=== PATIENT | male | born 1985 | race Two or more races ===

== ENCOUNTER 2017-04-15 10:47 | Inpatient (IN) | payer BC ==
[~2017-04-15] VITALS: Ht 170.2 cm; Wt 67.1 kg
[2017-04-15] MEDS ORDERED: Ketorolac 60mg Inj IM ONE (11:00)
[2017-04-15 11:10] VITALS: BP 126/81
[2017-04-15] MEDS ORDERED: methylPREDNISolone Sod Succ 1,000 MG in NS 275 ML IVPB ONE (12:15)
[2017-04-15 12:58] LABS: LYMPHOCYTES % (AUTO) 19.7 % (20.0-45.0); MEAN CORPUSCULAR HEMOGLOBIN 30.2 PG (27.0-31.0); MEAN CORPUSCULAR HGB CONC 33.2 G/DL (32.0-36.0); MEAN CORPUSCULAR VOLUME 91 FL (80-99); MEAN PLATELET VOLUME 9.5 FL (6.5-10.1); MONOCYTES % (AUTO) 4.7 % (1.0-10.0); NEUTROPHILS % (AUTO) 72.6 % (45.0-75.0); PLATELET COUNT 285 K/UL (150-450); RED BLOOD COUNT 5.24 M/UL (4.70-6.10); RED CELL DISTRIBUTION WIDTH 13.3 % (11.6-14.8); WHITE BLOOD COUNT 9.1 K/UL (4.8-10.8)
[2017-04-15 13:06] LABS: INR 0.9 (0.9-1.1); PROTHROMBIN TIME 9.4 SEC (9.30-11.50)
[2017-04-15 13:15] LABS: ALANINE AMINOTRANSFERASE 23 U/L (3-41); ALBUMIN/GLOBULIN RATIO 1.7 (1.0-2.7); ANION GAP 13 (5-15); ASPARTATE AMINO TRANSFERASE 24 U/L (5-40); CALCIUM 9.6 mg/dL (8.6-10.2); CARBON DIOXIDE 26 mEQ/L (20-30); CHLORIDE 101 mEQ/L (98-107); CREATININE 0.8 mg/dL (0.7-1.2); GLOMERULAR FILTRATION RATE > 60 mL/min (>60); HEMOLYSIS 59; POTASSIUM 4.3 mEQ/L (3.4-4.9); SODIUM 140 mEQ/L (135-145); TOTAL PROTEIN 7.3 g/dL (6.6-8.7)
[2017-04-15 13:49] LABS: BILIRUBIN,DIRECT 0.2 mg/dL (0.1-0.3)
[2017-04-15] MEDS ORDERED: Morphine Sulfate 4mg/ml Inj IVP ONE (14:30)
[2017-04-15 14:42] VITALS: BP 129/84
[2017-04-15] MEDS ORDERED: GABAPENTIN600 MG ORAL (14:54)
[2017-04-15] MEDS ORDERED: KADIAN30 MG PO (14:54)
[2017-04-15] MEDS ORDERED: PERCOCET 10-321 EAC1 PO (14:54)
--- NOTE | 2017-04-15 15:21 | History and Physical ---
History of Present Illness General Date patient seen: Apr 15, 2017 Time patient seen: 15:21 Reason for Hospitalization: Pain Present Illness HPI 32yo male with pmh of MS (dx 8-9 years ago w/ loss of R eye vision followed by R face numbness and dysesthesia of R side of body) p/w uncontrolled pain and new L sided weakness He was first started on Avonex as his disease modifying agent and then because he was having side effects from Avonex he was started on Rebif. He has been on Rebif for numerous years. In spite of being on the Rebif, he has had multiple exacerbations of neurological problems. He is treated for these exacerbations with Solu-Medrol. He usually lives in [place], but is visiting [place] right now and he suddenly developed left-sided discomfort. The discomfort is in the form of dysesthetic pain and weakness on the left side. In ER, pt given solumdrol 1g. No imaging done. Allergies: Coded Allergies: No Known Allergies (Unverified , 04/15/17) Medication History Scheduled Gabapentin* (Gabapentin*), 600 MG ORAL FOUR TIMES A DAY, (Reported) Morphine Sulfate (Angelica), 30 MG PO PRN, (Reported) Oxycodone HCl/Acetaminophen (Percocet 10-325 mg Tablet), 1 EACH PO EVERY 12 HOURS, (Reported) Patient History Healthcare decision maker Resuscitation status Advanced Directive on File Past Medical/Surgical History Past Medical/Surgical History: (1) Multiple sclerosis Social History Social History: (1) Tobacco abuse Review of Systems Constitutional: Reports: no symptoms Eye: Reports: no symptoms ENT: Reports: no symptoms Respiratory: Reports: no symptoms Cardiovascular: Reports: no symptoms Gastrointestinal: Reports: no symptoms Genitourinary: Reports: no symptoms Musculoskeletal: Reports: no symptoms Skin: Reports: no symptoms Psychiatric: Reports: no symptoms Neurological: Reports: focal weakness, numbness, paresthesia Endocrine: Reports: no symptoms Hematologic/Lymphatic: Reports: no symptoms Physical Exam Physical Exam Narrative General: alert, cooperative, no distress, appears stated age Head: normocephalic, without obvious abnormality, atraumatic Eyes: conjunctivae/corneas clear. PERRL, EOM's intact Throat: lips, mucosa, and tongue normal. MMM Neck: supple, symmetrical, trachea midline, and no JVD Lungs: clear to auscultation bilaterally Heart: regular rate and rhythm, S1, S2 normal, no murmur, click, rub or gallop Abdomen: soft, non-tender, non-distended, bowel sounds normal; no masses or organomegaly Extremities: extremities normal, atraumatic, no cyanosis or edema Pulses: 2+ and symmetric Skin: skin color, texture, turgor normal; no rashes or lesions Neurologic: Altered sensation over right > left face and body. +L sided UE and LE motor weakness 3/5 Decreased DTRs in UE with normal DTRs in BLEs Inability to stand and walk due to left weakness. Last 24 Hour Vital Signs Date Time Temp Pulse Resp B/P Pulse Ox O2 Delivery O2 Flow Rate FiO2 04/15/17 14:42 97.5 86 16 129/84 98 Room Air 04/15/17 11:10 97.6 84 15 126/81 97 Room Air 04/15/17 10:51 97.7 89 18 122/79 97 Room Air Laboratory Tests Test 04/15/17 12:45 White Blood Count 9.1 K/UL (4.8-10.8) Red Blood Count 5.24 M/UL (4.70-6.10) Hemoglobin 15.8 G/DL (14.2-18.0) Hematocrit 47.5 % (42.0-52.0) Mean Corpuscular Volume 91 FL (80-99) Mean Corpuscular Hemoglobin 30.2 PG (27.0-31.0) Mean Corpuscular Hemoglobin Concent 33.2 G/DL (32.0-36.0) Red Cell Distribution Width 13.3 % (11.6-14.8) Platelet Count 285 K/UL (150-450) Mean Platelet Volume 9.5 FL (6.5-10.1) Neutrophils (%) (Auto) 72.6 % (45.0-75.0) Lymphocytes (%) (Auto) 19.7 % (20.0-45.0) L Monocytes (%) (Auto) 4.7 % (1.0-10.0) Eosinophils (%) (Auto) 2.0 % (0.0-3.0) Basophils (%) (Auto) 1.0 % (0.0-2.0) Erythrocyte Sedimentation Rate 9 MM/HR (0-15) Prothrombin Time 9.4 SEC (9.30-11.50) Prothromb Time International Ratio 0.9 (0.9-1.1) Activated Partial Thromboplast Time 28 SEC (23-33) Sodium Level 140 mEQ/L (135-145) Potassium Level 4.3 mEQ/L (3.4-4.9) Chloride Level 101 mEQ/L (98-107) Carbon Dioxide Level 26 mEQ/L (20-30) Anion Gap 13 (5-15) Blood Urea Nitrogen 14 mg/dL (7-23) Creatinine 0.8 mg/dL (0.7-1.2) Estimat Glomerular Filtration Rate > 60 mL/min (>60) Glucose Level 92 mg/dL (74-106) Calcium Level 9.6 mg/dL (8.6-10.2) Total Bilirubin 1.2 mg/dL (0.0-1.2) Direct Bilirubin 0.2 mg/dL (0.1-0.3) Aspartate Amino Transf (AST/SGOT) 24 U/L (5-40) Alanine Aminotransferase (ALT/SGPT) 23 U/L (3-41) Alkaline Phosphatase 80 U/L (40-129) C-Reactive Protein, Quantitative < 0.3 mg/dL (< 0.5) Total Protein 7.3 g/dL (6.6-8.7) Albumin 4.6 g/dL (3.5-5.2) Globulin 2.7 g/dL Albumin/Globulin Ratio 1.7 (1.0-2.7) Height (Feet): 5 Height (Inches): 7.00 Weight (Pounds): 148 Assessment/Plan Problem List: (1) New L sided weakness (2) Multiple sclerosis exacerbation ICD Codes: G35 - Multiple sclerosis SNOMED: [id number] (3) Acute on chronic pain Status: stable Assessment/Plan Admit inpt Neuro consult Check MRI brain w/ and w/o contrst Cont Solumedrol 1g daily per neuro Continue Rebif (pt has med) Continue Neurontin Mobilize with PT/OT. Pain control, bowel regimen Supportive care DVT ppx FULL CODE D/w pt, RN, neuro extensively regarding mgmt and dispo Sola Navarro M.D. Apr 15, 2017 15:21
[2017-04-15] MEDS ORDERED: Miralax 17gm pkt ORAL PRN (15:30)
[2017-04-15] MEDS ORDERED: Morphine Sulfate 4mg/ml Inj IVP PRN (15:30)
[2017-04-15] MEDS ORDERED: Milk of Magnesia 30ml Ud ORAL PRN (15:30)
[2017-04-15] MEDS ORDERED: Morphine Sulfate 2mg/ml Inj IVP PRN (15:30)
[2017-04-15] MEDS ORDERED: Mylanta II UD 30ml ORAL PRN (15:30)
[2017-04-15 16:00] VITALS: BP 114/70
[2017-04-15 16:06] VITALS: BP 124/81
--- NOTE | 2017-04-15 19:12 | Consultation ---
Consult Note Consult Note NEUROLOGY CONSULTATION: Full note dictated #[id number] 32 y/o, RH, CM with an 8-9 year H/O MS which presented with loss of vision in the right eye, followed by numbness over right face, followed by dysesthetic pain over the entire right body. He has been on Rebif as his DMA for numerous years. In spite of that he has had a few exacerbations which are treated with Solumedrol. He was hospitalized today for new onset left body dysesthesias and weakness. He has also had a C4-5 surgical procedure recently. ON EXAM: Disoriented to place. NLP in right eye with preserved pupillary light reflexes. Altered sensation over right > left face and body. Give way weakness involving left body. Decreased DTRs in UE with normal DTRs in BLEs Inability to stand and walk due to left weakness. IMPRESSION: H/O MS with possible exacerbation with new left sided weakness, and painful dysesthesias. REC: Solumedrol 1 G daily x 3 doses. Continue Rebif tiw. Continue Neurontin in present dose. Mobilize with PT/OT. Observe closely. Await MRI of brain. Louis Luque M.D., M.S.P.LOUIS HOWELL Apr 15, 2017 19:12
[2017-04-15 19:36] VITALS: BP 120/72
[2017-04-15] MEDS: Docusate 100mg cap ORAL SCH (21:00)
[2017-04-15] MEDS: Morphine Sulfate 10mg/ml Inj IVP PRN (22:11)
[2017-04-15] MEDS: methylPREDNISolone Sod Succ 1,000 MG in NS 275 ML IVPB SCH (22:12)
[2017-04-15] MEDS: Zolpidem 5mg tab ORAL PRN (22:22)
--- NOTE | 2017-04-15 22:30 | Consultation ---
DATE OF CONSULTATION: 04/15/2017 NEUROLOGY CONSULTATION CONSULTING PHYSICIAN: Viet Luque M.D. REQUESTING PHYSICIAN: Dr. Sola Navarro. HISTORY: Mr.Elliot Carson is a 32-year-old, right-handed gentleman, who was diagnosed with multiple sclerosis approximately 8 to 9 years ago when he presented with loss of vision in the right eye followed by numbness over the right face followed by a dysesthetic painful sensation over the entire right body. He was first started on Avonex as his disease modifying agent and then because he was having side effects from Avonex he was started on Rebif. He has been on Rebif for numerous years. In spite of being on the Rebif, he has had multiple exacerbations of neurological problems. He is treated for these exacerbations with Solu-Medrol. He usually lives in [place], but is visiting [place] right now and he suddenly developed left-sided discomfort. The discomfort is in the form of dysesthetic pain and weakness on the left side. As a result of that, he presented to the [facility] emergency room. He was given 1 g of Solu-Medrol in the emergency room and since then has been admitted to the hospital for further management. At this point in time, his left body dysesthesias are a little better than when he came in but he still feels significantly weak on that side and that side does not feel normal. Of note is that, he also had a C4-C5 surgery performed recently for a "collapsed disc." PAST MEDICAL HISTORY: Significant for multiple sclerosis for the last 8 or 9 years with predominantly right eye blindness and right body dysesthesias. FAMILY HISTORY: Nothing significant. PERSONAL HISTORY: Home: He lives alone. 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 Habits: He smokes approximately 5 to 10 cigarettes per day. He denies use of alcohol or illicit drugs. PRESENT MEDICATIONS: Include Protonix, Colace, gabapentin 600 mg 4 times a day, Tylenol p.r.n., morphine p.r.n., Dulcolax p.r.n., milk of magnesia p.r.n., MiraLax p.r.n., Zofran p.r.n., Ambien p.r.n., Benadryl p.r.n., and Mylanta p.r.n. He also got a gram of Solu-Medrol when he was in emergency room, and in addition, he got 60 mg of Toradol intramuscularly in the emergency room. PHYSICAL EXAMINATION: GENERAL EXAMINATION: He is a well-developed, well-nourished, pleasant, gentleman, lying in bed, in no acute distress. VITAL SIGNS: Pulse 89 per minute, blood pressure 124/81 mmHg, respirations 16 per minute, and temperature 97.4 degrees Fahrenheit. HEAD: Normocephalic and atraumatic. NECK: No neck rigidity was observed. He had a right anterior cervical diskectomy scar. EENT EXAMINATION: Benign. NEUROLOGICAL EXAMINATION: MENTAL STATUS EXAMINATION: He was awake and alert. He was oriented to person, place, and time except for the name of the hospital. He was able to recall 3/3 words immediately after 1 minute and after 3 minutes. He was able to remember presidents Trump through [employer] spontaneously, but needed hints to remember through [employer]. His mathematical skills were fairly good. His visuospatial function was preserved. SPEECH: He had no dysarthria. LANGUAGE: He had no aphasia. CRANIAL NERVE EXAMINATION: II: The visual mchugh were intact in the left eye. In the right eye, he complained of no light perception. III, IV & : The external ocular movements were full and the pupils are 4 mm in diameter, equal, round, regular and reacted well to light on both sides. V: He complained of altered sensations over both sides of the face with the right side being involved more than left side. VII: He had normal facial expressions and no facial asymmetry. VIII: He was able to hear well bilaterally and had no nystagmus. IX: The palate moved symmetrically on phonation. X: He had no hoarseness of voice. XI: The sternocleidomastoids and trapezii functioned normally. XII: The tongue was in midline without any fasciculations or atrophy. MOTOR SYSTEM: The tone was normal in all four extremities. Examination of muscle mass revealed no focal wasting. Examination of power was exceedingly difficult to perform because of significant give-way weakness over his entire left side. He had grade 5/5 power on the right side. SENSORY EXAMINATION: He complained of altered sensations to pinprick and light touch involving his right body more than left body. Graphesthesia was normal bilaterally. COORDINATION: He performed well on [id number] and [id number]-[id number] testing on the right side. He was unable to perform on the left side. REFLEXES: 1+ and bilaterally symmetrical at the biceps, triceps, and brachioradialis, 2+ at both knees, and 1+ at both ankles. The plantar responses were flexor bilaterally. STANCE & GAIT: Could not be tested because he felt that he would not be able to do so because of left-sided weakness. DIAGNOSTIC IMPRESSION: 1. Mr.Elliot Carson is a 32-year-old, right-handed gentleman, who has a 8 to 9 years history of multiple sclerosis, which presented with loss of vision in the right eye followed by numbness of the right face, followed by a dysesthetic painful sensation over his entire right body. At this point in time, he is being treated for this with Rebif as a disease modifying agent and Neurontin for the dysesthetic sensation and at times he also takes narcotics for his right-sided pain. He was hospitalized today for new onset left body dysesthesias of a painful nature and left-sided weakness. 2. On neurological examination, at this time, he is disoriented to place. He has no light perception in the right side, but preserved pupillary light reflexes bilaterally. He complains of altered sensations over his right more than left face and body. He exhibits significant give-way weakness on the left side making it impossible to determine the exact degree of weakness. The deep tendon reflexes are diminished at the biceps, triceps, brachioradialis and ankles, but normal at the knees and he is unable to stand and walk because of left-sided weakness. 3. The patient's history and neurological examination are most compatible with a possible multiple sclerosis exacerbation with new left-sided weakness and painful dysesthesias. RECOMMENDATIONS: 1. Agree with management thus far. 2. Agree with giving the patient Solu-Medrol 1 g daily for a total of 3 doses. He has already received 1 dose in the emergency room today and should be given 1 tomorrow and 1 day after tomorrow. 3. Rebif 3 times a week, should be continued. 4. Neurontin should be continued in the present dose. 5. An MRI scan of the brain has been performed. I shall review it when it becomes available for review. 6. He should be mobilized with the help of physical and occupational therapy. 7. He should be observed closely and depending on how he fares over the next day or so further recommendations will be given. Thank you for entrusting me with the care of Mr. Carson. I shall follow him with you. Viet Luque M.D., M.S.P.H. DR: LUCIA JOB#: [id number]
--- NOTE | 2017-04-15 23:12 | Emergency Room Report ---
History of Present Illness General Chief Complaint: Pain Source: Patient Present Illness HPI The patient is a 32-year-old male with a history of MS presenting for possible exacerbation of MS. He states that he was diagnosed 8 years ago and is taking rebif. He states that he occasionally gets exacerbations which feel like today. He is complaining of total body pain as well as left-sided weakness. He states that he lives in [place] and when this happens he is usually admitted and given 3-5 days of IV solumedrol. Pain is described as a 9/10 dull ache to the entire body. He has not tried any pain medications. He denies other symptoms including nausea, vomiting, fever, chills, CP, SOB The patient also states that he is residing in a rehabilitation facility. Allergies: Coded Allergies: No Known Allergies (Unverified , 04/15/17) Patient History Past Medical History: see triage record Pertinent Family History: none Reviewed Nursing Documentation: PMH: Agreed, PSxH: Agreed Nursing Documentation-PMH Hx Cardiac Problems: No Hx Cancer: No Hx Gastrointestinal Problems: No Hx Neurological Problems: Yes Hx Multiple Sclerosis: Yes Review of Systems All Other Systems: negative except mentioned in HPI Physical Exam Vital Signs Date Time Temp Pulse Resp B/P Pulse Ox O2 Delivery O2 Flow Rate FiO2 04/15/17 10:51 97.7 89 18 122/79 97 Room Air Sp02 EP Interpretation: reviewed, normal General Appearance: no apparent distress, alert, GCS 15, non-toxic Head: normocephalic, atraumatic Eyes: bilateral eye normal inspection ENT: hearing grossly normal, normal pharynx, no angioedema, normal voice Neck: supple, no bony tend, supple/symm/no masses Respiratory: chest non-tender, lungs clear, normal breath sounds, speaking full sentences Cardiovascular #1: regular rate, rhythm, no edema Musculoskeletal: normal inspection, gait/station normal, normal range of motion Neurologic: alert, oriented x3, responsive, sensory intact, normal gait Psychiatric: judgement/insight normal, memory normal, mood/affect normal, no suicidal/homicidal ideation Skin: normal color, no rash, warm/dry, well hydrated Medical Decision Making PA Attestation Dr. Davies is my supervising physician. Patient management was discussed with my supervising physician Diagnostic Impression: Primary Impression: Multiple sclerosis exacerbation ER Course The patient is a 32-year-old male with a history of MS presenting for a feeling of MS exacerbation Differential diagnoses considered but not limited to: Exacerbation of MS, CVA, Drug abuse, among others Physical exam: Vitals are within normal limits. No apparent distress. Repetitively requesting to go outside to smoke cigarette. The patient is alert and oriented x3. Appears to have full active range of motion of extremities. Normal gait Labs are unremarkable The patient is given 1 g of IV Solu-Medrol. He states that pain has not resided. As the patient is a resident of a rehabilitation facility, I warned him of treating pain with opiates. He understands and states his program allows medication given while in the hospital. He is given IV morphine with decrease of pain. Dr. Davies has spoken with admitting physician Laboratory Tests Test 04/15/17 12:45 White Blood Count 9.1 K/UL (4.8-10.8) Red Blood Count 5.24 M/UL (4.70-6.10) Hemoglobin 15.8 G/DL (14.2-18.0) Hematocrit 47.5 % (42.0-52.0) Mean Corpuscular Volume 91 FL (80-99) Mean Corpuscular Hemoglobin 30.2 PG (27.0-31.0) Mean Corpuscular Hemoglobin Concent 33.2 G/DL (32.0-36.0) Red Cell Distribution Width 13.3 % (11.6-14.8) Platelet Count 285 K/UL (150-450) Mean Platelet Volume 9.5 FL (6.5-10.1) Neutrophils (%) (Auto) 72.6 % (45.0-75.0) Lymphocytes (%) (Auto) 19.7 % (20.0-45.0) L Monocytes (%) (Auto) 4.7 % (1.0-10.0) Eosinophils (%) (Auto) 2.0 % (0.0-3.0) Basophils (%) (Auto) 1.0 % (0.0-2.0) Erythrocyte Sedimentation Rate 9 MM/HR (0-15) Prothrombin Time 9.4 SEC (9.30-11.50) Prothrombin Time INR 0.9 (0.9-1.1) PTT 28 SEC (23-33) Sodium Level 140 mEQ/L (135-145) Potassium Level 4.3 mEQ/L (3.4-4.9) Chloride Level 101 mEQ/L (98-107) Carbon Dioxide Level 26 mEQ/L (20-30) Anion Gap 13 (5-15) Blood Urea Nitrogen 14 mg/dL (7-23) Creatinine 0.8 mg/dL (0.7-1.2) Estimate Glomerular Filtration Rate > 60 mL/min (>60) Glucose Level 92 mg/dL (74-106) Calcium Level 9.6 mg/dL (8.6-10.2) Total Bilirubin 1.2 mg/dL (0.0-1.2) Direct Bilirubin 0.2 mg/dL (0.1-0.3) Aspartate Amino Transferase (AST) 24 U/L (5-40) Alanine Aminotransferase (ALT) 23 U/L (3-41) Alkaline Phosphatase 80 U/L (40-129) C-Reactive Protein, Quantitative < 0.3 mg/dL (< 0.5) Total Protein 7.3 g/dL (6.6-8.7) Albumin 4.6 g/dL (3.5-5.2) Globulin 2.7 g/dL Albumin/Globulin Ratio 1.7 (1.0-2.7) Lab Results Impression Unremarkable Last Vital Signs Date Time Temp Pulse Resp B/P Pulse Ox O2 Delivery O2 Flow Rate FiO2 04/15/17 19:36 97.2 72 20 120/72 99 Room Air Status: improved Disposition: ADMITTED INPATIENT Condition: Serious Referrals: NOT CHOSEN IPA/,REFERRING (PCP) CAYDEN FOSTER Apr 15, 2017 23:12
[2017-04-16] VITALS: BP 117/60
[2017-04-16] MEDS: Morphine Sulfate 10mg/ml Inj IVP PRN ×5 (02:01→20:00)
[2017-04-16 04:00] VITALS: BP 127/69
[2017-04-16 07:12] LABS: MEAN CORPUSCULAR HEMOGLOBIN 30.3 PG (27.0-31.0); MEAN CORPUSCULAR HGB CONC 33.1 G/DL (32.0-36.0); MEAN CORPUSCULAR VOLUME 92 FL (80-99); MEAN PLATELET VOLUME 8.9 FL (6.5-10.1); PLATELET COUNT 245 K/UL (150-450); RED BLOOD COUNT 4.94 M/UL (4.70-6.10); RED CELL DISTRIBUTION WIDTH 12.8 % (11.6-14.8); WHITE BLOOD COUNT 11.2 K/UL (4.8-10.8)
[2017-04-16 07:15] LABS: ALANINE AMINOTRANSFERASE 18 U/L (3-41); ALBUMIN/GLOBULIN RATIO 1.6 (1.0-2.7); ANION GAP 11 (5-15); ASPARTATE AMINO TRANSFERASE 14 U/L (5-40); CALCIUM 9.4 mg/dL (8.6-10.2); CARBON DIOXIDE 25 mEQ/L (20-30); CHLORIDE 103 mEQ/L (98-107); CREATININE 0.8 mg/dL (0.7-1.2); GLOMERULAR FILTRATION RATE > 60 mL/min (>60); HEMOLYSIS 5; POTASSIUM 4.3 mEQ/L (3.4-4.9); SODIUM 139 mEQ/L (135-145); TOTAL PROTEIN 6.3 g/dL (6.6-8.7)
[2017-04-16 08:00] VITALS: BP 116/71
[2017-04-16 08:08] LABS: BAND NEUTROPHILS % (MANUAL) 0 % (0-8); BASOPHILS % (MANUAL) 0 % (0-2); EOSINOPHILS % (MANUAL) 0 % (0-3); LYMPHOCYTES % (MANUAL) 11 % (20-45); NEUTROPHILS % (MANUAL) 88 % (45-75); PLATELET ESTIMATE ADEQUATE; TOTAL CELLS COUNTED 100
[2017-04-16 08:09] LABS: BILIRUBIN,DIRECT 0.1 mg/dL (0.1-0.3)
[2017-04-16 08:11] LABS: PLATELET MORPHOLOGY NORMAL
[2017-04-16] MEDS: Docusate 100mg cap ORAL SCH ×2 (09:59→20:26)
--- NOTE | 2017-04-16 10:14 | Diagnostic Imaging Report ---
Indication: Focal weakness on the left side. Headache. History of multiple sclerosis Technique: The head was imaged in a 1.5 Suzette magnet. Sequences obtained include sagittal and axial T1 FLAIR, axial T2 fast spin echo with fat saturation, axial T2 FLAIR, diffusion and ADC map. Gadolinium-enhanced axial and coronal T1 FLAIR obtained also. Comparison: None Findings: The size, contour, and configuration of the sulci, ventricles, and basal cisterns appear normal. Robertson-white differentiation is normal. There is no restricted diffusion. There is no mass effect, midline shift, edema, or hemorrhage. There are no abnormal extra-axial or intra-axial fluid collections. The corpus callosum is unremarkable. The brainstem and cerebellum are unremarkable. The sella is unremarkable. Bone marrow signal within the visualized osseous structures appears age appropriate and unremarkable otherwise. No abnormal enhancement is identified. Impression: Negative MRI brain with and without contrast.
[2017-04-16] MEDS ORDERED: Tubing IV Secondary IV ONE (10:39)
[2017-04-16] MEDS ORDERED: 1/2 NS 1000ml IV ONE (10:39)
[2017-04-16 16:00] VITALS: BP 125/66
[2017-04-16 20:00] VITALS: BP 127/71
--- NOTE | 2017-04-16 21:31 | Neurology Progress Note ---
Interim History Interim History Interim History Mr. Carson feels better. The mind is clear. He feels stronger. The altered sensation over his left body is unchanged. He got his second dose of Solu-medrol last night and did not get his morning dose today. He denies any new neurologic symptoms. Review of Systems Neuro Review of Systems Benign. Objective Physical Exam Last Vital Signs Date Time Temp Pulse Resp B/P Pulse Ox O2 Delivery O2 Flow Rate FiO2 04/16/17 20:00 97.5 92 20 127/71 97 Room Air Laboratory Tests Test 04/16/17 05:35 White Blood Count 11.2 K/UL (4.8-10.8) H Red Blood Count 4.94 M/UL (4.70-6.10) Hemoglobin 15.0 G/DL (14.2-18.0) Hematocrit 45.3 % (42.0-52.0) Mean Corpuscular Volume 92 FL (80-99) Mean Corpuscular Hemoglobin 30.3 PG (27.0-31.0) Mean Corpuscular Hemoglobin Concent 33.1 G/DL (32.0-36.0) Red Cell Distribution Width 12.8 % (11.6-14.8) Platelet Count 245 K/UL (150-450) Mean Platelet Volume 8.9 FL (6.5-10.1) Neutrophils (%) (Auto) % (45.0-75.0) Lymphocytes (%) (Auto) % (20.0-45.0) Monocytes (%) (Auto) % (1.0-10.0) Eosinophils (%) (Auto) % (0.0-3.0) Basophils (%) (Auto) % (0.0-2.0) Differential Total Cells Counted 100 Neutrophils % (Manual) 88 % (45-75) H Lymphocytes % (Manual) 11 % (20-45) L Monocytes % (Manual) 1 % (1-10) Eosinophils % (Manual) 0 % (0-3) Basophils % (Manual) 0 % (0-2) Band Neutrophils 0 % (0-8) Platelet Estimate Adequate Platelet Morphology Normal Red Blood Cell Morphology Normal Sodium Level 139 mEQ/L (135-145) Potassium Level 4.3 mEQ/L (3.4-4.9) Chloride Level 103 mEQ/L (98-107) Carbon Dioxide Level 25 mEQ/L (20-30) Anion Gap 11 (5-15) Blood Urea Nitrogen 16 mg/dL (7-23) Creatinine 0.8 mg/dL (0.7-1.2) Estimat Glomerular Filtration Rate > 60 mL/min (>60) Glucose Level 148 mg/dL (74-106) H Calcium Level 9.4 mg/dL (8.6-10.2) Total Bilirubin 1.1 mg/dL (0.0-1.2) Direct Bilirubin 0.1 mg/dL (0.1-0.3) Aspartate Amino Transf (AST/SGOT) 14 U/L (5-40) Alanine Aminotransferase (ALT/SGPT) 18 U/L (3-41) Alkaline Phosphatase 71 U/L (40-129) Total Protein 6.3 g/dL (6.6-8.7) L Albumin 3.9 g/dL (3.5-5.2) Globulin 2.4 g/dL Albumin/Globulin Ratio 1.6 (1.0-2.7) Neurologic Exam Objective PHYSICAL EXAMINATION: GENERAL EXAMINATION: He is a well-developed, well-nourished, pleasant, gentleman, lying in bed, in no acute distress. HEAD: Normocephalic and atraumatic. NECK: No neck rigidity was observed. He had a right anterior cervical diskectomy scar. EENT EXAMINATION: Benign. NEUROLOGICAL EXAMINATION: MENTAL STATUS EXAMINATION: He was awake and alert. He was oriented to person, place, and time. He was able to recall 3/3 words immediately after 1 minute and after 3 minutes. He was able to remember presidents Trump through [facility] spontaneously, but needed hints to remember through [employer]. His mathematical skills were fairly good. His visuospatial function was preserved. SPEECH: He had no dysarthria. LANGUAGE: He had no aphasia. CRANIAL NERVE EXAMINATION: II: The visual mchugh were intact in the left eye. In the right eye, he complained of no light perception. III, IV & : The external ocular movements were full and the pupils are 4 mm in diameter, equal, round, regular and reacted well to light on both sides. V: He complained of altered sensations over both sides of the face with the right side being involved more than left side. VII: He had normal facial expressions and no facial asymmetry. VIII: He was able to hear well bilaterally and had no nystagmus. IX: The palate moved symmetrically on phonation. X: He had no hoarseness of voice. XI: The sternocleidomastoids and trapezii functioned normally. XII: The tongue was in midline without any fasciculations or atrophy. MOTOR SYSTEM: The tone was normal in all four extremities. Examination of muscle mass revealed no focal wasting. Examination of power was exceedingly difficult to perform because of significant give-way weakness over his entire left side - however he was stronger than yesterday. He had grade 5/5 power on the right side. SENSORY EXAMINATION: He complained of altered sensations to pinprick and light touch involving his left body more than right body. Graphesthesia was normal bilaterally. COORDINATION: He performed well on [id number] and [id number] testing on the right side. He was unable to perform on the left side. REFLEXES: 1+ and bilaterally symmetrical at the biceps, triceps, and brachioradialis, 2++ at both knees, and 1+ at both ankles. The plantar responses were flexor bilaterally. STANCE: He stood up independently using his IV pole. GAIT: He walked well independently using his IV pole but tended to drag his left leg. . Impression/Recommendations Diagnostic Impression 1. Mr.Elliot Carson is a 32-year-old, right-handed gentleman, who has a 8 to 9 years history of multiple sclerosis, which presented with loss of vision in the right eye followed by numbness of the right face, followed by a dysesthetic painful sensation over his entire right body. At this point in time , he is being treated for this with Rebif as a disease modifying agent and Neurontin for the dysesthetic sensation and at times he also takes narcotics for his right-sided pain. He was hospitalized on 04/15/17 for new onset left body dysesthesias of a painful nature and left-sided weakness. 2. He feels better today. He is stronger on the left and the left body dysesthesias are minimally better. 3. On neurological examination, at this time, he is fully oriented. He has no light perception in the right side, but preserved pupillary light reflexes bilaterally. He complains of altered sensations over his right more than left face, and left body more than right body. He exhibits less give-way weakness on the left side but it is still impossible to determine the exact degree of weakness. The deep tendon reflexes are diminished at the biceps, triceps, brachioradialis and ankles, but brisk at the knees. He is able to stand and walk today but in an awkward manner with dragging of his left leg. 4. The MRI of the brain is benign with no acute or chronic MS lesions. 5. The patient's history and neurological examination are most compatible with a possible multiple sclerosis exacerbation with new left-sided weakness and painful dysesthesias. Recommendations 1. Finish 3 day course of Solu-Medrol 1 g daily. 2. Continue Rebif 3 times a week. 3. Continue Neurontin in the present dose. 4. Mobilized with the help of physical and occupational therapy. Louis Luque M.D., M.S.P.Pete. LOUIS LUQUE Apr 16, 2017 21:31
[2017-04-16] MEDS: methylPREDNISolone Sod Succ 1,000 MG in NS 275 ML IVPB SCH (21:41)
[2017-04-16] MEDS: Zolpidem 5mg tab ORAL PRN (23:58)
[2017-04-17] VITALS: BP 132/71
[2017-04-17] MEDS: Morphine Sulfate 10mg/ml Inj IVP PRN ×6 (00:01→22:54)
[2017-04-17 04:00] VITALS: BP 117/55
[2017-04-17 08:00] VITALS: BP 137/94
[2017-04-17] MEDS: Docusate 100mg cap ORAL SCH ×2 (08:01→21:00)
--- NOTE | 2017-04-17 08:21 | General Progress Note ---
Assessment/Plan Problem List: (1) New L sided weakness (2) Multiple sclerosis exacerbation ICD Codes: G35 - Multiple sclerosis SNOMED: 549541429 (3) Acute on chronic pain Status: stable Assessment/Plan Neuro consult Check MRI brain w/ and w/o contrst Cont Solumedrol 1g daily per neuro Continue Rebif (pt has his own med) Continue Neurontin Mobilize with PT/OT. Pain control, bowel regimen Supportive care DVT ppx FULL CODE D/w pt, RN, neuro extensively regarding mgmt and dispo Subjective Date patient seen: Apr 16, 2017 Time patient seen: 10:00 ROS Limited/Unobtainable: No Allergies: Coded Allergies: No Known Allergies (Unverified , 04/15/17) Subjective No acute o/n events C/o uncontrolled pain. Pain mgmt consulted Still w/ L sided weakness On solumedrol 1g q24h Objective Last 24 Hour Vital Signs Date Time Temp Pulse Resp B/P Pulse Ox O2 Delivery O2 Flow Rate FiO2 04/17/17 04:00 97.5 72 20 117/55 95 Room Air 04/17/17 00:00 97.2 91 20 132/71 97 Room Air 04/16/17 20:00 97.5 92 20 127/71 97 Room Air 04/16/17 16:00 97.9 95 20 125/66 94 Room Air Intake and Output 04/16/17 04/17/17 19:00 07:00 Intake Total 2200 ml 1100 ml Output Total 1000 ml Balance 2200 ml 100 ml Intake Oral 1600 ml IV Total 600 ml 1100 ml Output Urine Total 1000 ml # Voids 8 # Bowel Movements 1 Height (Feet): 5 Height (Inches): 7.00 Weight (Pounds): 148 Objective General: alert, cooperative, no distress, appears stated age Head: normocephalic, without obvious abnormality, atraumatic Eyes: conjunctivae/corneas clear. PERRL, EOM's intact Throat: lips, mucosa, and tongue normal. MMM Neck: supple, symmetrical, trachea midline, and no JVD Lungs: clear to auscultation bilaterally Heart: regular rate and rhythm, S1, S2 normal, no murmur, click, rub or gallop Abdomen: soft, non-tender, non-distended, bowel sounds normal; no masses or organomegaly Extremities: extremities normal, atraumatic, no cyanosis or edema Pulses: 2+ and symmetric Skin: skin color, texture, turgor normal; no rashes or lesions Neurologic: Altered sensation over right > left face and body. +L sided UE and LE motor weakness 3/5 Decreased DTRs in UE with normal DTRs in BLEs Inability to stand and walk due to left weakness. Sola Navarro M.D. Apr 17, 2017 08:21
[2017-04-17] MEDS ORDERED: oxyCODONE HCL/Acetaminophen 5/325mg ORAL PRN (09:00)
--- NOTE | 2017-04-17 09:24 | Consultation ---
History of Present Illness General Date patient seen: Apr 17, 2017 Chief Complaint: Pain Present Illness Allergies: Coded Allergies: No Known Allergies (Unverified , 04/15/17) Medication History Scheduled Gabapentin* (Gabapentin*), 600 MG ORAL FOUR TIMES A DAY, (Reported) Morphine Sulfate (Angelica), 30 MG PO PRN, (Reported) Oxycodone HCl/Acetaminophen (Percocet 10-325 mg Tablet), 1 EACH PO EVERY 12 HOURS, (Reported) Patient History Healthcare decision maker Resuscitation status Full Code Advanced Directive on File Physical Exam Last 24 Hour Vital Signs Date Time Temp Pulse Resp B/P Pulse Ox O2 Delivery O2 Flow Rate FiO2 04/17/17 08:00 97.0 91 19 137/94 97 Room Air 04/17/17 04:00 97.5 72 20 117/55 95 Room Air 04/17/17 00:00 97.2 91 20 132/71 97 Room Air 04/16/17 20:00 97.5 92 20 127/71 97 Room Air 04/16/17 16:00 97.9 95 20 125/66 94 Room Air Intake and Output 04/16/17 04/17/17 19:00 07:00 Intake Total 2200 ml 1100 ml Output Total 1000 ml Balance 2200 ml 100 ml Intake Oral 1600 ml IV Total 600 ml 1100 ml Output Urine Total 1000 ml # Voids 8 # Bowel Movements 1 Height (Feet): 5 Height (Inches): 7.00 Weight (Pounds): 148 Medications Current Medications Medications (Trade) Dose Ordered Sig/Radhika Route PRN Reason Start Time Stop Time Status Last Admin Dose Admin Acetaminophen (Tylenol) 650 mg Q4H PRN ORAL Mild Pain (Pain Scale 1-3) 04/15/17 15:30 05/15/17 15:29 Al Hydroxide/Mg Hydroxide (Mylanta II) 30 ml Q6H PRN ORAL dyspepsia 04/15/17 15:30 05/15/17 15:29 Bisacodyl (Dulcolax) 10 mg HSPRN PRN RECTAL Constipation 04/15/17 15:30 05/15/17 15:29 Dextrose (Dextrose 50%) STAT PRN IV Hypoglycemia 04/15/17 15:30 05/15/17 15:29 Diphenhydramine HCl (Benadryl) 25 mg Q6H PRN ORAL Itching/Pruritis 04/15/17 15:30 05/15/17 15:29 Docusate Sodium (Colace) 100 mg EVERY 12 HOURS ORAL 04/15/17 21:00 05/15/17 20:59 04/16/17 09:59 Gabapentin 600 mg 600 mg FOUR TIMES A DAY ORAL 04/15/17 18:00 05/15/17 17:59 04/17/17 07:56 Magnesium Hydroxide (Mom) 30 ml HSPRN PRN ORAL Constipation 04/15/17 15:30 05/15/17 15:29 Methylprednisolone Sodium Succinate/ Sodium Chloride (SOLU-Medrol/ Sodium Chloride) 275 ml @ 275 mls/hr Q24H IVPB 04/15/17 21:00 05/15/17 20:59 04/16/17 21:41 Morphine Sulfate (Morphine Sulfate) 6 mg Q4H PRN IVP for severe pain 04/16/17 21:15 04/23/17 21:14 04/17/17 07:57 Ondansetron HCl (Zofran) 4 mg Q6H PRN IVP Nausea & Vomiting 04/15/17 15:30 05/15/17 15:29 Oxycodone/ Acetaminophen (Percocet 5-325) 1 tab Q6H PRN ORAL moderate breakthrough pain 04/17/17 09:00 04/24/17 08:59 Pantoprazole (Protonix) 40 mg DAILY ORAL 04/16/17 09:00 05/16/17 08:59 04/17/17 07:56 Polyethylene Glycol (Miralax) 17 gm HSPRN PRN ORAL Constipation 04/15/17 15:30 05/15/17 15:29 Sodium Chloride (0.45% NS 1000ml) 1,000 ml @ 75 mls/hr [id number] IV 04/15/17 17:00 05/15/17 16:59 04/16/17 23:58 Zolpidem Tartrate (Ambien) 5 mg HSPRN PRN ORAL Insomnia 04/15/17 15:30 05/15/17 15:29 04/16/17 23:58 Assessment/Plan Assessment/Plan (1) Multiple Sclerosis (2) Neuropathic pain (3) Cervical Herniated disc (4) S/p Cervical surgery Seen dictated LACY GOLDSTEIN Apr 17, 2017 09:24
[2017-04-17 12:00] VITALS: BP 135/70
--- NOTE | 2017-04-17 14:00 | Neurology Progress Note ---
Interim History Interim History Interim History Mr. Carson feels much better. The mind is clear. He continues to feel stronger. The altered sensation over his left body is better. He still complains of body pain. He is walking much better. He got his third dose of Solu-medrol last night. He denies any new neurologic symptoms. Review of Systems Neuro Review of Systems Benign. Objective Physical Exam Last Vital Signs Date Time Temp Pulse Resp B/P Pulse Ox O2 Delivery O2 Flow Rate FiO2 04/17/17 12:00 97.7 84 17 135/70 95 Room Air Neurologic Exam Objective PHYSICAL EXAMINATION: GENERAL EXAMINATION: He is a well-developed, well-nourished, pleasant, gentleman, lying in bed, in no acute distress. HEAD: Normocephalic and atraumatic. NECK: No neck rigidity was observed. He had a right anterior cervical diskectomy scar. EENT EXAMINATION: Benign. NEUROLOGICAL EXAMINATION: MENTAL STATUS EXAMINATION: He was awake and alert. He was oriented to person, place, and time. He was able to recall 3/3 words immediately after 1 minute and after 3 minutes. He was able to remember presidents [employer] through [employer]. His mathematical skills were fairly good. His visuospatial function was preserved. SPEECH: He had no dysarthria. LANGUAGE: He had no aphasia. CRANIAL NERVE EXAMINATION: II: The visual mchugh were intact in the left eye. In the right eye, he complained of no light perception. III, IV & : The external ocular movements were full and the pupils are 4 mm in diameter, equal, round, regular and reacted well to light on both sides. V: He complained of altered sensations over both sides of the face with the right side being involved more than left side. VII: He had normal facial expressions and no facial asymmetry. VIII: He was able to hear well bilaterally and had no nystagmus. IX: The palate moved symmetrically on phonation. X: He had no hoarseness of voice. XI: The sternocleidomastoids and trapezii functioned normally. XII: The tongue was in midline without any fasciculations or atrophy. MOTOR SYSTEM: The tone was normal in all four extremities. Examination of muscle mass revealed no focal wasting. Examination of power was exceedingly difficult to perform because of significant give-way weakness over his entire left side - however he was stronger than yesterday. He had grade 5/5 power on the right side. SENSORY EXAMINATION: He complained of altered sensations to pinprick and light touch involving his left body more than right body. Graphesthesia was normal bilaterally. COORDINATION: He performed well on [id number] and [id number] testing on the right side. He was unable to perform on the left side. REFLEXES: 1+ and bilaterally symmetrical at the biceps, triceps, and brachioradialis, 2++ at both knees, and 1+ at both ankles. The plantar responses were flexor bilaterally. STANCE: He stood up independently. GAIT: He walked well independently using a cane but tended to drag his left leg. . Impression/Recommendations Diagnostic Impression 1. Mr.Elliot Carson is a 32-year-old, right-handed gentleman, who has a 8 to 9 years history of multiple sclerosis, which presented with loss of vision in the right eye followed by numbness of the right face, followed by a dysesthetic painful sensation over his entire right body. At this point in time , he is being treated for this with Rebif as a disease modifying agent and Neurontin for the dysesthetic sensation and at times he also takes narcotics for his right-sided pain. He was hospitalized on 04/15/17 for new onset left body dysesthesias of a painful nature and left-sided weakness. 2. He continues to feel better. He is stronger on the left and the left body dysesthesias are better. 3. On neurological examination, at this time, he is fully oriented. He has no light perception in the right eye, but preserved pupillary light reflexes bilaterally. He complains of altered sensations over his right more than left face, and left body more than right body. He exhibits less give-way weakness on the left side but it is still impossible to determine the exact degree of weakness. The deep tendon reflexes are diminished at the biceps, triceps, brachioradialis and ankles, but brisk at the knees. He is able to stand and walk today but in an awkward manner with dragging of his left leg. 4. The MRI of the brain is benign with no acute or chronic MS lesions. 5. The patient's history and neurological examination are most compatible with a possible multiple sclerosis exacerbation with new left-sided weakness and painful dysesthesias. Recommendations 1. Finish 3 day course of Solu-Medrol 1 g daily. 2. Continue Rebif 3 times a week. 3. Continue Neurontin in the present dose. 4. Mobilize with the help of physical and occupational therapy. Louis Simons M.D., M.S.P.Pete. LOUIS SIMONS Apr 17, 2017 14:00
[2017-04-17 16:00] VITALS: BP 125/83
--- NOTE | 2017-04-17 16:17 | Diagnostic Imaging Report ---
Indications: Acute neck pain episode. History of multiple sclerosis, neck fusion 2 years ago, chronic postoperative difficulty swallowing Technique: Four or 5 views of the cervical spine Comparison: None Findings:No prevertebral soft tissue swelling. No acute fractures. No dislocations. There is a disc prosthesis or spacer at C5-6. The neural foramina are preserved. Impression:Postsurgical changes, as described No acute bony trauma
[2017-04-17] MEDS: MS Contin 15mg tab ORAL SCH (18:30)
[2017-04-17 20:00] VITALS: BP 129/90
[2017-04-17] MEDS: methylPREDNISolone Sod Succ 1,000 MG in NS 275 ML IVPB SCH (21:18)
--- NOTE | 2017-04-17 21:39 | General Progress Note ---
Assessment/Plan Problem List: (1) New L sided weakness (2) Multiple sclerosis exacerbation ICD Codes: G35 - Multiple sclerosis SNOMED: 310405342 (3) Acute on chronic pain (4) cervical herniated disc s/p surgery Status: stable Assessment/Plan Neuro consult Check MRI brain w/ and w/o contrat ---> neg Cont Solumedrol 1g daily per neuro Continue Rebif (pt has his own med) Continue Neurontin Mobilize with PT/OT. Pain control, bowel regimen Supportive care DVT ppx CM consulted for ARU placement FULL CODE D/w pt, RN, neuro extensively regarding mgmt and dispo Subjective Date patient seen: Apr 17, 2017 Time patient seen: 11:00 ROS Limited/Unobtainable: No Constitutional: Reports: no symptoms HEENT: Reports: blurred vision Cardiovascular: Reports: no symptoms Respiratory: Reports: no symptoms Gastrointestinal/Abdominal: Reports: no symptoms Genitourinary: Reports: no symptoms Neurologic/Psychiatric: Reports: numbness, weakness Endocrine: Reports: no symptoms Hematologic/Lymphatic: Reports: no symptoms Allergies: Coded Allergies: No Known Allergies (Unverified , 04/15/17) All Systems: reviewed and negative except above Subjective No acute o/n events C/o uncontrolled pain. Pain mgmt consulted Still w/ L sided weakness On solumedrol 1g q24h PT/OT recommends SNF/ARU Objective Last 24 Hour Vital Signs Date Time Temp Pulse Resp B/P Pulse Ox O2 Delivery O2 Flow Rate FiO2 04/17/17 16:00 97.7 91 19 125/83 95 Room Air 04/17/17 12:29 97.7 04/17/17 12:00 97.7 84 17 135/70 95 Room Air 04/17/17 08:00 97.0 91 19 137/94 97 Room Air 04/17/17 04:00 97.5 72 20 117/55 95 Room Air 04/17/17 00:00 97.2 91 20 132/71 97 Room Air Intake and Output 04/16/17 04/17/17 19:00 07:00 Intake Total 2200 ml 1100 ml Output Total 1000 ml Balance 2200 ml 100 ml Intake Oral 1600 ml IV Total 600 ml 1100 ml Output Urine Total 1000 ml # Voids 8 # Bowel Movements 1 Height (Feet): 5 Height (Inches): 7.00 Weight (Pounds): 148 Objective General: alert, cooperative, no distress, appears stated age Head: normocephalic, without obvious abnormality, atraumatic Eyes: conjunctivae/corneas clear. PERRL, EOM's intact Throat: lips, mucosa, and tongue normal. MMM Neck: supple, symmetrical, trachea midline, and no JVD Lungs: clear to auscultation bilaterally Heart: regular rate and rhythm, S1, S2 normal, no murmur, click, rub or gallop Abdomen: soft, non-tender, non-distended, bowel sounds normal; no masses or organomegaly Extremities: extremities normal, atraumatic, no cyanosis or edema Pulses: 2+ and symmetric Skin: skin color, texture, turgor normal; no rashes or lesions Neurologic: Altered sensation over right > left face and body. +L sided UE and LE motor weakness 3/5 Decreased DTRs in UE with normal DTRs in BLEs Inability to stand and walk due to left weakness. Sola Navarro M.D. Apr 17, 2017 21:39
[2017-04-17] MEDS ORDERED: MS Contin 15mg tab ORAL SCH (22:00)
[2017-04-17] MEDS: Zolpidem 5mg tab ORAL PRN (22:53)
[2017-04-18] VITALS: BP 127/91
[2017-04-18] MEDS: MS Contin 15mg tab ORAL SCH ×3 (03:13→17:08)
[2017-04-18 04:00] VITALS: BP 135/77
[2017-04-18] MEDS: Morphine Sulfate 10mg/ml Inj IVP PRN (05:53)
[2017-04-18 08:19] VITALS: BP 130/94
[2017-04-18] MEDS: Docusate 100mg cap ORAL SCH (08:23)
[2017-04-18 12:10] VITALS: BP 127/81
[2017-04-18] MEDS: Morphine Sulfate 2mg/ml Inj IVP PRN ×3 (13:07→22:46)
--- NOTE | 2017-04-18 14:18 | Neurology Progress Note ---
Interim History Interim History Interim History Mr. Carson continues to feel much better. The mind is clear. He continues to feel stronger. The altered sensation over his left body is about the same. He still complains of body pain. He is walking much better. He got his third dose of Solu-medrol last night. He denies any new neurologic symptoms. Review of Systems Neuro Review of Systems Benign. Objective Physical Exam Last Vital Signs Date Time Temp Pulse Resp B/P Pulse Ox O2 Delivery O2 Flow Rate FiO2 04/18/17 13:37 98.0 04/18/17 12:10 80 20 127/81 98 Room Air Neurologic Exam Objective PHYSICAL EXAMINATION: GENERAL EXAMINATION: He is a well-developed, well-nourished, pleasant, gentleman, lying in bed, in no acute distress. HEAD: Normocephalic and atraumatic. NECK: No neck rigidity was observed. He had a right anterior cervical diskectomy scar. EENT EXAMINATION: Benign. NEUROLOGICAL EXAMINATION: MENTAL STATUS EXAMINATION: He was awake and alert. He was oriented to person, place, and time. He was able to recall 3/3 words immediately after 1 minute and after 3 minutes. He was able to remember presidents [employer] through [employer] senior. His mathematical skills were fairly good. His visuospatial function was preserved. SPEECH: He had no dysarthria. LANGUAGE: He had no aphasia. CRANIAL NERVE EXAMINATION: II: The visual mchugh were intact in the left eye. In the right eye, he complained of no light perception. III, IV & : The external ocular movements were full and the pupils are 4 mm in diameter, equal, round, regular and reacted well to light on both sides. V: He complained of altered sensations over both sides of the face with the right side being involved more than left side. VII: He had normal facial expressions and no facial asymmetry. VIII: He was able to hear well bilaterally and had no nystagmus. IX: The palate moved symmetrically on phonation. X: He had no hoarseness of voice. XI: The sternocleidomastoids and trapezii functioned normally. XII: The tongue was in midline without any fasciculations or atrophy. MOTOR SYSTEM: The tone was normal in all four extremities. Examination of muscle mass revealed no focal wasting. Examination of power was exceedingly difficult to perform because of significant give-way weakness over his entire left side - however he was stronger than yesterday. He had grade 5/5 power on the right side. SENSORY EXAMINATION: He complained of altered sensations to pinprick and light touch involving his left body more than right body. Graphesthesia was normal bilaterally. COORDINATION: He performed well on [id number] and [id number] testing on the right side. He was unable to perform on the left side. REFLEXES: 1+ and bilaterally symmetrical at the biceps, triceps, and brachioradialis, 2++ at both knees, and 1+ at both ankles. The plantar responses were flexor bilaterally. STANCE: He stood up independently. GAIT: He walked well independently using a cane but tended to drag his left leg. . Impression/Recommendations Diagnostic Impression 1. Mr.Elliot Carson is a 32-year-old, right-handed gentleman, who has a 8 to 9 years history of multiple sclerosis, which presented with loss of vision in the right eye followed by numbness of the right face, followed by a dysesthetic painful sensation over his entire right body. At this point in time , he is being treated for this with Rebif as a disease modifying agent and Neurontin for the dysesthetic sensation and at times he also takes narcotics for his right-sided pain. He was hospitalized on 04/15/17 for new onset left body dysesthesias of a painful nature and left-sided weakness. 2. He continues to feel better. He is stronger on the left and the left body dysesthesias are better. 3. On neurological examination, at this time, he is fully oriented. He has no light perception in the right eye, but preserved pupillary light reflexes bilaterally. He complains of altered sensations over his right more than left face, and left body more than right body. He exhibits less give-way weakness on the left side but it is still impossible to determine the exact degree of weakness. The deep tendon reflexes are diminished at the biceps, triceps, brachioradialis and ankles, but brisk at the knees. He is able to stand and walk today but in an awkward manner with dragging of his left leg. 4. The MRI of the brain is benign with no acute or chronic MS lesions. 5. The patient's history and neurological examination are most compatible with a possible multiple sclerosis exacerbation with new left-sided weakness and painful dysesthesias. Recommendations 1. Keep active. 2. Continue Rebif 3 times a week. 3. Continue Neurontin in the present dose. 4. Mobilize with the help of physical and occupational therapy. 5. See MS specialist in future. Louis Simons M.D., M.S.P.H. LOUIS SIMONS Apr 18, 2017 14:18
--- NOTE | 2017-04-18 14:58 | General Progress Note ---
Assessment/Plan Problem List: (1) New L sided weakness (2) Multiple sclerosis exacerbation ICD Codes: G35 - Multiple sclerosis SNOMED: 616403189 (3) Acute on chronic pain (4) cervical herniated disc s/p surgery Status: stable Assessment/Plan Neuro consult Check MRI brain w/ and w/o contrast ---> neg Cont Solumedrol 1g daily per neuro x 5 days (04/15-04/19) Continue Rebif 3 times per week (pt has his own med) Continue Neurontin Mobilize with PT/OT Pain control, bowel regimen Supportive care DVT ppx CM consulted for ARU placement--awaiting insurance authorization for CRI FULL CODE D/w pt, RN, neuro extensively regarding mgmt and dispo Subjective Date patient seen: Apr 18, 2017 Time patient seen: 14:58 ROS Limited/Unobtainable: No Constitutional: Reports: no symptoms HEENT: Reports: no symptoms Cardiovascular: Reports: no symptoms Respiratory: Reports: no symptoms Gastrointestinal/Abdominal: Reports: no symptoms Genitourinary: Reports: no symptoms Neurologic/Psychiatric: Reports: numbness, paresthesia, tingling, weakness Endocrine: Reports: no symptoms Hematologic/Lymphatic: Reports: no symptoms Allergies: Coded Allergies: No Known Allergies (Unverified , 04/15/17) Subjective No acute o/n events Pain better controlled Still w/ L sided weakness--but LUE appears to be improving States LLE w/ increased numbness today Walking w/ cane On solumedrol 1g q24h, day 4 today Objective Last 24 Hour Vital Signs Date Time Temp Pulse Resp B/P Pulse Ox O2 Delivery O2 Flow Rate FiO2 04/18/17 13:37 98.0 04/18/17 12:10 98.0 80 20 127/81 98 Room Air 04/18/17 11:36 97.5 04/18/17 08:19 97.5 82 20 130/94 98 Room Air 04/18/17 04:00 96.6 76 16 135/77 97 Room Air 04/18/17 00:00 97.8 88 20 127/91 97 Room Air 04/17/17 20:00 97.6 85 18 129/90 97 Room Air 04/17/17 16:00 97.7 91 19 125/83 95 Room Air Intake and Output 04/17/17 04/18/17 19:00 07:00 Intake Total 1925 ml 350 ml Balance 1925 ml 350 ml Intake Oral 1700 ml IV Total 225 ml 350 ml # Voids 6 4 # Bowel Movements 2 2 Height (Feet): 5 Height (Inches): 7.00 Weight (Pounds): 148 Objective General: alert, cooperative, no distress, appears stated age Head: normocephalic, without obvious abnormality, atraumatic Eyes: conjunctivae/corneas clear. PERRL, EOM's intact Throat: lips, mucosa, and tongue normal. MMM Neck: supple, symmetrical, trachea midline, and no JVD Lungs: clear to auscultation bilaterally Heart: regular rate and rhythm, S1, S2 normal, no murmur, click, rub or gallop Abdomen: soft, non-tender, non-distended, bowel sounds normal; no masses or organomegaly Extremities: extremities normal, atraumatic, no cyanosis or edema Pulses: 2+ and symmetric Skin: skin color, texture, turgor normal; no rashes or lesions Neurologic: Altered sensation over right > left face and body. +L sided UE and LE motor weakness 3/5 Decreased DTRs in UE with normal DTRs in BLEs Inability to stand and walk due to left weakness. Sola Navarro M.D. Apr 18, 2017 14:58
[2017-04-18] MEDS ORDERED: Milk of Magnesia 30ml Ud ORAL PRN (15:15)
[2017-04-18] MEDS ORDERED: Docusate 100mg cap ORAL PRN (15:15)
[2017-04-18 16:00] VITALS: BP 124/94
[2017-04-18 20:00] VITALS: BP 143/88
[2017-04-18] MEDS: methylPREDNISolone Sod Succ 1,000 MG in NS 275 ML IVPB SCH (20:58)
[2017-04-19] VITALS: BP 132/81
[2017-04-19] MEDS: Zolpidem 5mg tab ORAL PRN (00:59)
[2017-04-19] MEDS: MS Contin 15mg tab ORAL SCH ×3 (02:03→17:11)
[2017-04-19 04:00] VITALS: BP 128/84
[2017-04-19] MEDS: Morphine Sulfate 2mg/ml Inj IVP PRN ×5 (04:26→20:51)
[2017-04-19 08:00] VITALS: BP 136/63
--- NOTE | 2017-04-19 11:34 | General Progress Note ---
Assessment/Plan Assessment/Plan (1) Multiple Sclerosis (2) Neuropathic pain (3) Cervical Herniated disc (4) S/p Cervical surgery Pt will be continued on Morphine ER and IVP, and Percocet as needed. D/w Dr. Longo and concurred. Subjective Date patient seen: Apr 19, 2017 Time patient seen: 10:15 - am Constitutional: Reports: weakness HEENT: Reports: blurred vision Cardiovascular: Reports: no symptoms Respiratory: Reports: no symptoms Gastrointestinal/Abdominal: Reports: no symptoms Genitourinary: Reports: no symptoms Neurologic/Psychiatric: Reports: numbness, paresthesia, tingling, weakness Endocrine: Reports: no symptoms Hematologic/Lymphatic: Reports: no symptoms Allergies: Coded Allergies: No Known Allergies (Unverified , 04/15/17) Subjective Patient is comfortable. We had started patient on Morphine ER 15mg Q8H and reduced the Morphine to 2mg. His pain has been well controlled. Objective Last 24 Hour Vital Signs Date Time Temp Pulse Resp B/P Pulse Ox O2 Delivery O2 Flow Rate FiO2 04/19/17 10:56 97.3 04/19/17 09:02 97.3 04/19/17 08:00 96.8 72 19 136/63 100 Room Air 04/19/17 04:00 96.6 88 16 128/84 97 Room Air 04/19/17 00:00 97.3 94 20 132/81 100 Room Air 04/18/17 20:00 97.6 92 19 143/88 95 Room Air 04/18/17 16:00 98.2 83 20 124/94 98 Room Air 04/18/17 12:10 98.0 80 20 127/81 98 Room Air Intake and Output 04/18/17 04/19/17 19:00 07:00 Intake Total 1200 ml 275 ml Balance 1200 ml 275 ml Intake Oral 1200 ml IV Total 275 ml # Voids 5 2 Height (Feet): 5 Height (Inches): 7.00 Weight (Pounds): 148 General Appearance: no apparent distress, alert EENT: PERRL/EOMI, normal ENT inspection Neck: non-tender, normal alignment Cardiovascular: normal rate, regular rhythm Respiratory/Chest: lungs clear, normal breath sounds Abdomen: non tender, soft Extremities: non-tender Neurologic: alert, oriented x 3 LACY GOLDSTEIN N. P.AShakira Apr 19, 2017 11:34
[2017-04-19 12:00] VITALS: BP 136/86
--- NOTE | 2017-04-19 13:52 | Neurology Progress Note ---
Interim History Interim History Interim History Mr. Carson feels much better. The mind is clear. He continues to feel stronger. The left upper extremity is becoming stronger much faster than the lower extremity. The altered sensation over his left body is better. The body pain is improving. He is walking better. He got his 4th dose of Solu-medrol last night. He denies any new neurologic symptoms. Review of Systems Neuro Review of Systems Benign. Objective Physical Exam Last Vital Signs Date Time Temp Pulse Resp B/P Pulse Ox O2 Delivery O2 Flow Rate FiO2 04/19/17 12:00 97.7 76 19 136/86 95 Room Air Neurologic Exam Objective PHYSICAL EXAMINATION: GENERAL EXAMINATION: He is a well-developed, well-nourished, pleasant, gentleman, sitting up at the edge of his bed, in no acute distress. HEAD: Normocephalic and atraumatic. NECK: No neck rigidity was observed. He had a right anterior cervical diskectomy scar. EENT EXAMINATION: Benign. NEUROLOGICAL EXAMINATION: MENTAL STATUS EXAMINATION: He was awake and alert. He was oriented to person, place, and time. He was able to recall 3/3 words immediately after 1 minute and after 3 minutes. He was able to remember presidents [employer] through [employer] senior. His mathematical skills were fairly good. His visuospatial function was preserved. SPEECH: He had no dysarthria. LANGUAGE: He had no aphasia. CRANIAL NERVE EXAMINATION: II: The visual mchugh were intact in the left eye. In the right eye, he complained of no light perception. III, IV & : The external ocular movements were full and the pupils are 4 mm in diameter, equal, round, regular and reacted well to light on both sides. V: He complained of altered sensations over both sides of the face with the right side being involved more than left side. VII: He had normal facial expressions and no facial asymmetry. VIII: He was able to hear well bilaterally and had no nystagmus. IX: The palate moved symmetrically on phonation. X: He had no hoarseness of voice. XI: The sternocleidomastoids and trapezii functioned normally. XII: The tongue was in midline without any fasciculations or atrophy. MOTOR SYSTEM: The tone was normal in all four extremities. Examination of muscle mass revealed no focal wasting. Examination of power was exceedingly difficult to perform because of significant give-way weakness over his entire left side - however he was stronger than yesterday especially in his upper extremity. He had grade 5/5 power on the right side. SENSORY EXAMINATION: He complained of altered sensations to pinprick and light touch involving his left body more than right body. Graphesthesia was normal bilaterally. COORDINATION: He performed well on [id number] and [id number] testing on the right side. He was unable to perform on the left side. REFLEXES: 1+ and bilaterally symmetrical at the biceps, triceps, and brachioradialis, 2++ at both knees, 1+ at both ankles. The plantar responses were flexor bilaterally. STANCE: He stood up independently. GAIT: He walked well independently using a cane but tended to drag his left leg. . Impression/Recommendations Diagnostic Impression 1. Mr.Elliot Carson is a 32-year-old, right-handed gentleman, who has a 8 to 9 years history of multiple sclerosis, which presented with loss of vision in the right eye followed by numbness of the right face, followed by a dysesthetic painful sensation over his entire right body. At this point in time , he is being treated for this with Rebif as a disease modifying agent and Neurontin for the dysesthetic sensation and at times he also takes narcotics for his right-sided pain. He was hospitalized on 04/15/17 for new onset left body dysesthesias of a painful nature and left-sided weakness. 2. He continues to feel better. He is stronger on the left and the left body dysesthesias are better. 3. On neurological examination, at this time, he is fully oriented. He has no light perception in the right eye, but preserved pupillary light reflexes bilaterally. He complains of altered sensations over his right more than left face, and left body more than right body. He exhibits less give-way weakness on the left side but it is still impossible to determine the exact degree of weakness. The deep tendon reflexes are diminished at the biceps, triceps, brachioradialis and ankles, but brisk at the knees. He is able to stand and walk but in an awkward manner with dragging of his left leg. 4. The MRI of the brain is benign with no acute or chronic MS lesions. 5. The patient's history and neurological examination are most compatible with a possible multiple sclerosis exacerbation with new left-sided weakness and painful dysesthesias. Recommendations 1. Keep active. 2. Continue Rebif 3 times a week. 3. Continue Neurontin in the present dose. 4. 5th and last dose of Solu-medrol today. 5. Mobilize with the help of physical and occupational therapy. 6. See MS specialist in future. Louis Simons M.D., M.S.[facility]. LOUIS SIMONS Apr 19, 2017 13:52
--- NOTE | 2017-04-19 15:32 | General Progress Note ---
Assessment/Plan Problem List: (1) New L sided weakness (2) Multiple sclerosis exacerbation ICD Codes: G35 - Multiple sclerosis SNOMED: 844255773 (3) Acute on chronic pain (4) cervical herniated disc s/p surgery Status: stable Assessment/Plan Neuro consult F/u MRI brain w/ and w/o contrast ---> neg Cont Solumedrol 1g daily per neuro x 5 days (04/15-04/19) Continue Rebif 3 times per week (pt has his own med) Continue Neurontin Mobilize with PT/OT Pain control, bowel regimen Supportive care DVT ppx CM consulted for ARU placement--awaiting insurance authorization for CRI FULL CODE D/w pt, RN, neuro extensively regarding mgmt and dispo Subjective Date patient seen: Apr 19, 2017 Time patient seen: 15:31 ROS Limited/Unobtainable: No Constitutional: Reports: no symptoms HEENT: Reports: no symptoms Cardiovascular: Reports: no symptoms Gastrointestinal/Abdominal: Reports: no symptoms Genitourinary: Reports: no symptoms Neurologic/Psychiatric: Reports: numbness, paresthesia, weakness Endocrine: Reports: no symptoms Hematologic/Lymphatic: Reports: no symptoms Allergies: Coded Allergies: No Known Allergies (Unverified , 04/15/17) Subjective No acute o/n events Pain better controlled Still w/ L sided weakness--but LUE appears to be improving more so that LLE States LLE w/ increased numbness Walking w/ cane, has a limp On solumedrol 1g q24h, day 5 today Objective Last 24 Hour Vital Signs Date Time Temp Pulse Resp B/P Pulse Ox O2 Delivery O2 Flow Rate FiO2 04/19/17 13:03 97.3 04/19/17 12:00 97.7 76 19 136/86 95 Room Air 04/19/17 10:56 97.3 04/19/17 08:00 96.8 72 19 136/63 100 Room Air 04/19/17 04:00 96.6 88 16 128/84 97 Room Air 04/19/17 00:00 97.3 94 20 132/81 100 Room Air 04/18/17 20:00 97.6 92 19 143/88 95 Room Air 04/18/17 16:00 98.2 83 20 124/94 98 Room Air Intake and Output 04/18/17 04/19/17 19:00 07:00 Intake Total 1200 ml 275 ml Balance 1200 ml 275 ml Intake Oral 1200 ml IV Total 275 ml # Voids 5 2 Height (Feet): 5 Height (Inches): 7.00 Weight (Pounds): 148 Objective General: alert, cooperative, no distress, appears stated age Head: normocephalic, without obvious abnormality, atraumatic Eyes: conjunctivae/corneas clear. PERRL, EOM's intact Throat: lips, mucosa, and tongue normal. MMM Neck: supple, symmetrical, trachea midline, and no JVD Lungs: clear to auscultation bilaterally Heart: regular rate and rhythm, S1, S2 normal, no murmur, click, rub or gallop Abdomen: soft, non-tender, non-distended, bowel sounds normal; no masses or organomegaly Extremities: extremities normal, atraumatic, no cyanosis or edema Pulses: 2+ and symmetric Skin: skin color, texture, turgor normal; no rashes or lesions Neurologic: Altered sensation over right > left face and body. +L sided UE and LE motor weakness 3/5 Decreased DTRs in UE with normal DTRs in BLEs Inability to stand and walk due to left weakness. Sola Navarro M.D. Apr 19, 2017 15:32
[2017-04-19 16:00] VITALS: BP 135/89
[2017-04-19 20:00] VITALS: BP 135/97
[2017-04-19] MEDS ORDERED: methylPREDNISolone Sod Succ 1,000 MG in NS 275 ML IVPB SCH (21:00)
[2017-04-20] VITALS (7 sets, daily range): BP systolic 127–145; BP diastolic 52–95
[2017-04-20] MEDS: Morphine Sulfate 2mg/ml Inj IVP PRN ×6 (01:13→22:22)
[2017-04-20] MEDS: Zolpidem 5mg tab ORAL PRN ×2 (02:14→22:29)
[2017-04-20] MEDS: MS Contin 15mg tab ORAL SCH ×3 (02:14→19:04)
--- NOTE | 2017-04-20 08:46 | General Progress Note ---
Assessment/Plan Assessment/Plan (1) Multiple Sclerosis (2) Neuropathic pain (3) Cervical Herniated disc (4) S/p Cervical surgery Pt will be continued on Morphine ER and IVP, and Percocet as needed. D/w Dr. Longo and concurred. Subjective Date patient seen: Apr 20, 2017 Time patient seen: 08:00 - am Allergies: Coded Allergies: No Known Allergies (Unverified , 04/15/17) Subjective Constitutional: Reports: weakness HEENT: Reports: blurred vision Cardiovascular: Reports: no symptoms Respiratory: Reports: no symptoms Gastrointestinal/Abdominal: Reports: no symptoms Genitourinary: Reports: no symptoms Neurologic/Psychiatric: Reports: numbness, paresthesia, tingling, weakness Endocrine: Reports: no symptoms Hematologic/Lymphatic: Reports: no symptoms Subjective Pain has per patient has been controlled on the medication. Objective Last 24 Hour Vital Signs Date Time Temp Pulse Resp B/P Pulse Ox O2 Delivery O2 Flow Rate FiO2 04/20/17 08:00 97.3 89 20 135/95 97 Room Air 04/20/17 04:00 97.3 96 18 127/84 100 Room Air 04/20/17 00:00 98.0 88 18 131/87 100 Room Air 04/19/17 20:00 97.9 90 20 135/97 99 Room Air 04/19/17 18:10 97.7 04/19/17 17:09 97.7 04/19/17 16:00 97.7 86 19 135/89 95 Room Air 04/19/17 12:00 97.7 76 19 136/86 95 Room Air Intake and Output 04/19/17 04/20/17 19:00 07:00 Intake Total 200 ml 275 ml Balance 200 ml 275 ml Intake Oral 200 ml IV Total 275 ml # Voids 1 1 Height (Feet): 5 Height (Inches): 7.00 Weight (Pounds): 148 Objective General Appearance: no apparent distress, alert EENT: PERRL/EOMI, normal ENT inspection Neck: non-tender, normal alignment Cardiovascular: normal rate, regular rhythm Respiratory/Chest: lungs clear, normal breath sounds Abdomen: non tender, soft Extremities: non-tender Neurologic: alert, oriented x 3 LACY GOLDSTEIN PJuan Jose Apr 20, 2017 08:46
--- NOTE | 2017-04-20 13:15 | Neurology Progress Note ---
Interim History Interim History Interim History Mr. Carson feels much better. The mind is clear. He continues to feel stronger. The left upper extremity is becoming stronger and so is the left lower extremity. The altered sensation over his left body is better. The body pain is improving. He is walking better. He got his 5th dose of Solu-medrol last night. He denies any new neurologic symptoms. Review of Systems Neuro Review of Systems Benign. Objective Physical Exam Last Vital Signs Date Time Temp Pulse Resp B/P Pulse Ox O2 Delivery O2 Flow Rate FiO2 04/20/17 12:00 97.9 89 20 145/93 97 Room Air Neurologic Exam Objective PHYSICAL EXAMINATION: GENERAL EXAMINATION: He is a well-developed, well-nourished, pleasant, gentleman, sitting up at the edge of his bed, in no acute distress. HEAD: Normocephalic and atraumatic. NECK: No neck rigidity was observed. He had a right anterior cervical diskectomy scar. EENT EXAMINATION: Benign. NEUROLOGICAL EXAMINATION: MENTAL STATUS EXAMINATION: He was awake and alert. He was oriented to person, place, and time. He was able to recall 3/3 words immediately after 1 minute and after 3 minutes. He was able to remember presidents Trump through Connolly senior. His mathematical skills were fairly good. His visuospatial function was preserved. SPEECH: He had no dysarthria. LANGUAGE: He had no aphasia. CRANIAL NERVE EXAMINATION: II: The visual mchugh were intact in the left eye. In the right eye, he complained of no light perception. III, IV & : The external ocular movements were full and the pupils are 4 mm in diameter, equal, round, regular and reacted well to light on both sides. V: He complained of altered sensations over both sides of the face with the right side being involved more than left side. VII: He had normal facial expressions and no facial asymmetry. VIII: He was able to hear well bilaterally and had no nystagmus. IX: The palate moved symmetrically on phonation. X: He had no hoarseness of voice. XI: The sternocleidomastoids and trapezii functioned normally. XII: The tongue was in midline without any fasciculations or atrophy. MOTOR SYSTEM: The tone was normal in all four extremities. Examination of muscle mass revealed no focal wasting. Examination of power was exceedingly difficult to perform because of significant give-way weakness over his entire left side - however he was stronger than yesterday. He had grade 5/5 power on the right side. SENSORY EXAMINATION: He complained of altered sensations to pinprick and light touch involving his left body more than right body. Graphesthesia was normal bilaterally. COORDINATION: He performed well on [id number] and [id number] testing on the right side. He was unable to perform on the left side. REFLEXES: 1+ and bilaterally symmetrical at the biceps, triceps, and brachioradialis, 2+ at both knees, 1+ at both ankles. The plantar responses were flexor bilaterally. STANCE: He stood up independently. GAIT: He walked well independently using a cane but tended to drag his left leg. . Impression/Recommendations Diagnostic Impression 1. Mr.Elliot Carson is a 32-year-old, right-handed gentleman, who has a 8 to 9 years history of multiple sclerosis, which presented with loss of vision in the right eye followed by numbness of the right face, followed by a dysesthetic painful sensation over his entire right body. At this point in time , he is being treated for this with Rebif as a disease modifying agent and Neurontin for the dysesthetic sensation and at times he also takes narcotics for his right-sided pain. He was hospitalized on 04/15/17 for new onset left body dysesthesias of a painful nature and left-sided weakness. 2. He continues to feel better. He is stronger on the left and the left body dysesthesias are better. 3. On neurological examination, at this time, he is fully oriented. He has no light perception in the right eye, but preserved pupillary light reflexes bilaterally. He complains of altered sensations over his right more than left face, and left body more than right body. He exhibits less give-way weakness on the left side but it is still impossible to determine the exact degree of weakness. The deep tendon reflexes are diminished at the biceps, triceps, brachioradialis and ankles, but brisk at the knees. He is able to stand and walk but in an awkward manner with dragging of his left leg. 4. The MRI of the brain is benign with no acute or chronic MS lesions. 5. The patient's history and neurological examination are most compatible with a possible multiple sclerosis exacerbation with new left-sided weakness and painful dysesthesias. Recommendations 1. Keep active. 2. Continue Rebif 3 times a week. 3. Continue Neurontin in the present dose. 4. Mobilize with the help of physical and occupational therapy. 5. See MS specialist in future. Louis Simons M.D., M.S.P.Pete. LOUIS SIMONS Apr 20, 2017 13:15
--- NOTE | 2017-04-20 21:58 | General Progress Note ---
Assessment/Plan Problem List: (1) New L sided weakness (2) Multiple sclerosis exacerbation ICD Codes: G35 - Multiple sclerosis SNOMED: 227260523 (3) Acute on chronic pain (4) cervical herniated disc s/p surgery Assessment/Plan Neuro consult F/u MRI brain w/ and w/o contrast ---> neg Cont Solumedrol 1g daily per neuro x 5 days (04/15-04/19) Continue Rebif 3 times per week (pt has his own med) Continue Neurontin Mobilize with PT/OT Pain control, bowel regimen Supportive care DVT ppx CM consulted for ARU placement--awaiting insurance authorization for CRI FULL CODE D/w pt, RN, neuro extensively regarding mgmt and dispo Subjective Date patient seen: Apr 20, 2017 Time patient seen: 15:00 ROS Limited/Unobtainable: No Constitutional: Reports: no symptoms HEENT: Reports: no symptoms Cardiovascular: Reports: no symptoms Respiratory: Reports: no symptoms Gastrointestinal/Abdominal: Reports: no symptoms Genitourinary: Reports: no symptoms Neurologic/Psychiatric: Reports: numbness, paresthesia, weakness Hematologic/Lymphatic: Reports: no symptoms Allergies: Coded Allergies: No Known Allergies (Unverified , 04/15/17) Subjective No acute o/n events Pain better controlled Still w/ L sided weakness--but LUE appears to be improving more so that LLE States LLE w/ increased numbness Walking w/ cane, has a limp On solumedrol 1g q24h, day 5 today Objective Last 24 Hour Vital Signs Date Time Temp Pulse Resp B/P Pulse Ox O2 Delivery O2 Flow Rate FiO2 04/20/17 20:03 98.4 04/20/17 20:00 98.1 88 18 134/52 Room Air 04/20/17 18:53 97.7 04/20/17 16:00 97.7 85 20 134/62 98 Room Air 04/20/17 12:00 97.9 89 20 145/93 97 Room Air 04/20/17 08:00 97.3 89 20 135/95 97 Room Air 04/20/17 04:00 97.3 96 18 127/84 100 Room Air 04/20/17 00:00 98.0 88 18 131/87 100 Room Air Intake and Output 04/19/17 04/20/17 19:00 07:00 Intake Total 200 ml 275 ml Balance 200 ml 275 ml Intake Oral 200 ml IV Total 275 ml # Voids 1 1 Height (Feet): 5 Height (Inches): 7.00 Weight (Pounds): 148 Objective General: alert, cooperative, no distress, appears stated age Head: normocephalic, without obvious abnormality, atraumatic Eyes: conjunctivae/corneas clear. PERRL, EOM's intact Throat: lips, mucosa, and tongue normal. MMM Neck: supple, symmetrical, trachea midline, and no JVD Lungs: clear to auscultation bilaterally Heart: regular rate and rhythm, S1, S2 normal, no murmur, click, rub or gallop Abdomen: soft, non-tender, non-distended, bowel sounds normal; no masses or organomegaly Extremities: extremities normal, atraumatic, no cyanosis or edema Pulses: 2+ and symmetric Skin: skin color, texture, turgor normal; no rashes or lesions Neurologic: Altered sensation over right > left face and body. +L sided UE and LE motor weakness 3/5 Decreased DTRs in UE with normal DTRs in BLEs Inability to stand and walk due to left weakness. Sola Navarro M.D. Apr 20, 2017 21:58
[2017-04-21] MEDS: MS Contin 15mg tab ORAL SCH ×2 (02:12→10:05)
[2017-04-21] MEDS: Morphine Sulfate 2mg/ml Inj IVP PRN ×3 (03:22→12:05)
[2017-04-21 03:52] VITALS: BP 129/69
[2017-04-21 08:00] VITALS: BP 124/86
[2017-04-21 12:00] VITALS: BP 129/99
--- NOTE | 2017-04-21 13:06 | General Progress Note ---
Assessment/Plan Assessment/Plan (1) Multiple Sclerosis (2) Neuropathic pain (3) Cervical Herniated disc (4) S/p Cervical surgery Pt will be continued on Morphine ER and IVP, and Percocet as needed. D/w Dr. Longo and concurred. Subjective Date patient seen: Apr 21, 2017 Time patient seen: 12:00 - pm Allergies: Coded Allergies: No Known Allergies (Unverified , 04/15/17) Subjective Constitutional: Reports: weakness HEENT: Reports: blurred vision Cardiovascular: Reports: no symptoms Respiratory: Reports: no symptoms Gastrointestinal/Abdominal: Reports: no symptoms Genitourinary: Reports: no symptoms Neurologic/Psychiatric: Reports: numbness, paresthesia, tingling, weakness Endocrine: Reports: no symptoms Hematologic/Lymphatic: Reports: no symptoms Subjective His pain has been stable on the medication. Objective Last 24 Hour Vital Signs Date Time Temp Pulse Resp B/P Pulse Ox O2 Delivery O2 Flow Rate FiO2 04/21/17 12:00 96.8 82 20 129/99 98 Room Air 04/21/17 08:00 97.0 87 20 124/86 96 Room Air 04/21/17 03:52 98.6 79 17 129/69 100 Room Air 04/21/17 03:11 98.2 04/21/17 03:11 98.2 04/20/17 23:32 98.2 84 18 137/73 97 Room Air 04/20/17 20:00 98.1 88 18 134/52 Room Air 04/20/17 16:00 97.7 85 20 134/62 98 Room Air Intake and Output 04/20/17 04/21/17 19:00 07:00 Intake Total 400 ml 380 ml Balance 400 ml 380 ml Intake Oral 400 ml 380 ml # Voids 5 3 Height (Feet): 5 Height (Inches): 7.00 Weight (Pounds): 148 Objective General Appearance: no apparent distress, alert EENT: PERRL/EOMI, normal ENT inspection Neck: non-tender, normal alignment Cardiovascular: normal rate, regular rhythm Respiratory/Chest: lungs clear, normal breath sounds Abdomen: non tender, soft Extremities: non-tender Neurologic: alert, oriented x 3 LACY GOLDSTEIN Apr 21, 2017 13:06
[2017-04-21] MEDS ORDERED: MS CONTIN15 MG ORAL (15:42)
--- NOTE | 2017-04-21 15:44 | Discharge Summary ---
Discharge Summary Hospital Course Date of Admission Apr 15, 2017 at 13:40 Date of Discharge 04/21/17 Admitting Diagnosis multiple sclerosis exacerbation HPI Christian Carson is a 32 year old male who was admitted on Apr 15, 2017 at 13: 40 for Multiple Aclerosis Exacerbation Discharge Medications New Medications: Morphine Sulfate (Morphine Sulfate) 15 Mg Tablet 15 MG ORAL Q8H for 30 Days, TAB Continued Medications: Gabapentin* (Gabapentin*) 600 Mg Tablet 600 MG ORAL FOUR TIMES A DAY, TAB Oxycodone HCl/Acetaminophen (Percocet 10-325 mg Tablet) 1 Each Tablet 1 EACH PO EVERY 12 HOURS, TAB Discontinued Medications: Morphine Sulfate (Angelica) 30 Mg Cap.er.pel 30 MG PO PRN, CAP Discharge Condition Upon Discharge: stable Discharge Disposition Patient was discharged to home w/ home health Discharge Diagnoses: (1) Multiple sclerosis exacerbation (2) New L sided weakness (3) Acute on chronic pain (4) cervical herniated disc s/p surgery (5) Tobacco abuse Sola Navarro M.D. Apr 21, 2017 15:44
[2017-04-21] MEDS ORDERED: Tubing IV Secondary IV ONE (16:19)
[2017-04-21] MEDS ORDERED: NS 275ml ONE (16:19)
== END 2017-04-21 16:20 | disposition home health service (06) | DRG 60 ==
LOC: EMR 11:25 → 4E 13:40 → EDBEDREQ 15:18
DX: G35 Multiple sclerosis (principal); M50.20 Other cervical disc displacement, unspecified cervical region; R53.1 Weakness; R52 Pain, unspecified; G89.29 Other chronic pain; F17.200 Nicotine dependence, unspecified, uncomplicated; R20.8 Other disturbances of skin sensation; H54.7 Unspecified visual loss; R20.0 Anesthesia of skin
CPT/HCPCS: 36415; 70553; 72052; 80053; 82248; 82962; 85007; 85025; 85610; 85651; 85730; 86140; A9585